=== PATIENT | female | born 1960 | race Caucasian/White ===

== ENCOUNTER 2020-10-23 17:13 | Emergency (ER) | payer BC, SELFPAY ==
--- NOTE | ~2020-10-23 | CT_ITS ---
EXAMINATION: CT ANGIOGRAM NECK WITH CONTRAST CT ANGIOGRAM BRAIN WITH CONTRAST CLINICAL INFORMATION: Rule out stroke. COMPARISON: None. TECHNIQUE: Test bolus sequences followed by intravenous administration 70 mL of Omnipaque 350. Helical imaging was performed in the axial plane from the thoracic inlet to the skull vertex. Delayed postcontrast imaging of the head was also performed. The data was processed at the medical laboratory technologist workstation for generation of MIP sequences. Angled MIPs and volume rendered reformatted images were also generated at an offline 3D workstation. Stenoses are assessed in accordance with NASCET criteria unless otherwise indicated. This CT examination was performed using dose optimization techniques as appropriate, variously including the following: *Automated exposure control *Adjustment of mA and/or kV according to patient size (this includes techniques or standardized protocols for targeted exams where dose is matched to indication/reason for exam; i.e. extremities or head) *Use of iterative reconstruction technique DLP: 2317 mGy-cm FINDINGS: Head CT: There is patchy hypoattenuation within the right inferior frontal lobe as seen on series 10 image 35/75. No well-defined cytotoxic edema is seen. There is no hemorrhage, mass effect, or extra-axial collection. The ventricles are normal in size and configuration without evidence of hydrocephalus. No enhancing lesion is seen. The dural venous sinuses are normally opacified. The extracranial structures are within normal limits. Neck CTA: The aortic arch and great vessels are patent. The bilateral common and internal carotid arteries are patent without significant stenosis of the carotid bifurcations. The bilateral vertebral arteries are patent. Head CTA: No intracranial aneurysm is seen. The intracranial internal carotid arteries appear normal. The anterior cerebral artery, anterior communicating artery, and middle cerebral arteries appear normal. The intradural vertebral arteries and basilar artery appear normal. The posterior cerebral arteries appear normal. There is a -type right [employer]CELL[employer]IST. A short segment basilar fenestration is noted. Non-vascular findings: No consolidation is seen within the upper lungs. Multilevel degenerative changes are seen within the spine predominantly from C4 to C7. CT/CT angio head neck IMPRESSION: CT head: Patchy area of hypoattenuation in the right frontal lobe could represent an area of evolving infarction or sequela of microangiopathy. No hemorrhage. CTA neck: No hemodynamically significant stenosis in the major arteries of the neck. CTA head: No large vessel occlusion or significant stenosis within the intracranial circulation.
[2020-10-23 17:20] VITALS: BP 152/79; PULSE 75; RESP 16; TEMP 36.7; O2SAT 98; BMI 38.0
--- NOTE | 2020-10-23 17:26 | ECG_ITS ---
Test Reason : WEAKNESS Blood Pressure : / mmHG Vent. Rate : 077 BPM Atrial Rate : 077 BPM P-R Int : 184 ms QRS Dur : 080 ms QT Int : 370 ms P-R-T Axes : 043 -03 030 degrees QTc Int : 418 ms Normal sinus rhythm Possible Inferior infarct , age undetermined - coulde be normal variant Cannot rule out Anterior infarct , age undetermined - could be normal variant or from lead placement Borderline ECG No previous ECGs available Referred By: Amador Sher Electronically Signed By:SHARMILA HAHN
--- NOTE | 2020-10-23 17:33 | ED.NEUROSD ---
HPI - Neuro Symptoms/Deficit General Chief Complaint: Weakness Stated Complaint: right sided tingling Time Seen by Provider: 10/23/20 17:26 Source: patient Mode of arrival: ambulatory Limitations: no limitations History of Present Illness HPI Narrative: Patient history of hypertension high cholesterol who usually healthy around 16:15 patient noticed all of a sudden right-sided tingling sensation which lasted for about 5 minutes , no dysarthria felt little weak on the right side when she tried to walk. Whole episode lasted only for 5 minutes no headaches no visual problem no speech problem patient never had similar episode in the past no history of migraine Time: 16:15 Related Data Previous Rx's Medication Instructions Recorded aspirin [Enteric Coated Aspirin] 81 mg PO DAILY #90 tab 10/23/20 Allergies Allergy/AdvReac Type Severity Reaction Status Date / Time No Known Allergies Allergy Verified 10/23/20 17:23 Review of Systems Review of Systems: Constitutional : No Weight loss, No Fever, No Chills ENT/Mouth : No sore throat, No Rhinorrhea Eyes: No Eye Pain, No Swelling Cardiovascular : No Chest Pain, no palpitations Respiratory : No Cough, No Sputum, no shortness of breath Gastrointestinal : no Nausea, No Vomiting, No Diarrhea, No abdominal Pain, no black stools Genitourinary : No Dysuria, No Urinary Frequency Musculoskeletal : No joint pain, No Myalgias, No Joint Swelling Skin : No Skin Lesions, No rash Neuro : +Weakness, + Numbness, No Dizziness, No Headache Psych : No Anxiety/Panic, No Depression Heme/Lymph: No Bruising, No Lymphadenopathy Endocrine : No Polyuria, No Polydipsia All other systems reviewed and are negative [facility] Past Medical History Medical History High cholesterol HTN (hypertension) Social History Social History Alcohol intake: never Smoking Status: Never smoker Use of substances other than those prescribed or required for medical reasons: No Advance Directives: No Advance Directives Information Provided: Yes Physical Exam Vital Signs: Vital Signs: Last Vital Signs Temp 98.4 F 10/23/20 20:00 Pulse 80 10/23/20 20:00 Resp 16 10/23/20 20:00 BP 136/66 10/23/20 20:00 Pulse Ox 99 10/23/20 20:00 Body Mass Index 38.0 Appearance: Alert. Oriented X3. No acute distress. Eyes: Pupils equal, round and reactive to light. ENT: Pharynx normal. Neck: Normal inspection. Neck supple. CVS: Normal heart rate and rhythm. Pulses normal. Respiratory: No respiratory distress. Breath sounds normal. Abdomen: Soft and nontender. Bowel sounds are present, no mass palpable, no CVA tenderness Skin: Skin warm and dry. Normal skin color. Normal skin turgor. Extremities: No lower extremity edema. Neuro: Oriented X 3. No motor deficit. No sensory deficit. Cranial nerves 2-12 intact tone normal no cerebellar signs, speech normal MDM - Neuro Symptoms/Deficit MDM Narrative Medical decision making narrative: Patient with right-sided paresthesia CT scan negative for any acute pathology etiology not very clear questionable TIA. Patient advised to follow-up with neurologist taking baby aspirin for now daily Differential Diagnosis Differential diagnosis: Likely peripheral neuropathy and transient cerebral ischemia Lab Data Attestation: I reviewed the patient's lab results. Result diagrams: 10/23/20 18:28 10/23/20 18:28 Labs: Lab Results 10/23/20 10/23/20 10/23/20 Range/Units 18:28 18:28 18:28 WBC 10.4 (4.8-10.8) X10*3/uL RBC 4.50 (4.20-5.50) X10*6/uL Hgb 13.4 (12.0-16.0) g/dl Hct 41.2 (37-47) % MCV 91.6 (80-98) fL MCH 29.8 (27.0-33.0) pg MCHC 32.5 (31.0-35.0) g/dl RDW 12.2 (11.0-16.0) % Plt Count 299 (160-400) X10*3/uL MPV 9.8 (9.4-12.3) fL Immature Gran % (Auto) 0.2 (0.0-0.4) % Neut % (Auto) 62.6 (45-73) % Lymph % (Auto) 26.0 (20-40) % Thurston % (Auto) 8.2 (2-11) % Eos % (Auto) 2.6 (0-4) % Baso % (Auto) 0.4 (0-2) % Lymph # (Auto) 2.7 (1.2-4.9) X10*3/uL Thurston # (Auto) 0.9 (0.1-1.2) X10*3/uL Eos # (Auto) 0.3 (0.0-0.4) X10*3/uL Baso # (Auto) 0.0 (0.0-0.2) X10*3/uL Abs Immat Gran (auto) 0.02 (0.00-0.03) X10*3/uL Absolute Neuts (auto) 6.5 (2.0-8.3) X10*3/uL Absolute Nucleated RBC 0.000 (0.0-0.012) X10*3/uL Nucleated RBC % (auto) 0.0 (0.0-0.2) /100WBC PT 11.3 (10.8-13.0) SEC INR 1.0 (0.9-1.1) APTT 32.3 (24.1-38.0) SEC Sodium 139 (135-145) mmol/L Potassium 3.8 (3.3-5.1) mmol/L Chloride 104 (96-108) mmol/L Carbon Dioxide 26 (22-29) mmol/L Anion Gap 13 (12-20) BUN 15 (9-16) mg/dL Creatinine 0.73 (0.5-1.4) mg/dL Estim Creat Clear Calc 95.7 Estimated GFR > 60 Random Glucose 84 (60-115) mg/dL Calcium 9.4 (8.4-10.2) mg/dL Total Bilirubin 0.3 (0.0-1.0) mg/dL Direct Bilirubin < 0.2 (0.0-0.5) mg/dL AST 25 (5-31) U/L ALT 37 H (0-31) U/L Alkaline Phosphatase 64 (39-117) U/L Total Protein 7.0 (6.5-8.0) g/dL Albumin 4.1 (3.5-5.0) g/dL ECG Data Attestation: I personally reviewed and interpreted this ECG as follows: Interpretation: Normal sinus rhythm heart rate 77 beats per minute normal intervals normal axis no acute ST T wave changes no acute ischemia NIH Stroke Scale Internal: Initial- Upon Arrival Level of Consciousness: Alert Level of Consciousness Questions: Answers both questions correctly Level of Consciousness Commands: Performs both tasks correctly Best Gaze: Normal Visual: No visual loss Facial Palsy: Normal Motor Arm (Right): No drift Motor Arm (Left): No drift Motor Leg (Right): No drift Motor Leg (Left): No drift Limb Ataxia: Absent Sensory: Normal Best Language: No aphasia Dysarthia: Normal Extinction and Inattention: No abnormality Score: 0 Discharge Plan Discharge Clinical Impression: TIA (transient ischemic attack) Patient Disposition: Home, Self-Care Instructions: Transient Ischemic Attack (ED) Additional Instructions: Take baby aspirin daily and follow with neurologist Report to the ER if recurrence of the attack or any focal deficits Prescriptions: New aspirin [Enteric Coated Aspirin] 81 mg tablet,delayed release (DR/EC) 81 mg PO DAILY Qty: 90 RF: 0 Referrals: Avtar Yoo MD [Physician] - 1 week Interventions: ED Discharge Assessment Last Done: 10/23/20 21:03 Discharge Date/Time: 10/23/20 21:04
[2020-10-23] MEDS: iohexoL 350 MG/ML 100 ML INFUS..BTL IV (18:11)
[2020-10-23 18:32] LABS: MANUAL DIFF FLAG NO
[2020-10-23 18:34] LABS: Basophils Percent Auto 0.4 % (0-2); Eosinophils Absolute Auto 0.3 X10*3/uL (0.0-0.4); Eosinophils Percent Auto 2.6 % (0-4); Hematocrit 41.2 % (37-47); Hemoglobin 13.4 g/dl (12.0-16.0); Imm Gran Abs Auto 0.02 X10*3/uL (0.00-0.03); Imm Gran Pct Auto 0.2 % (0.0-0.4); Lymphocytes Absolute Auto 2.7 X10*3/uL (1.2-4.9); Mean Corpuscular HGB Conc 32.5 g/dl (31.0-35.0); Mean Corpuscular Hemoglobin 29.8 pg (27.0-33.0); Mean Corpuscular Volume 91.6 fL (80-98); Mean Platelet Volume 9.8 fL (9.4-12.3); Monocytes Absolute Auto 0.9 X10*3/uL (0.1-1.2); Monocytes Percent Auto 8.2 % (2-11); Neutrophils Absolute Auto 6.5 X10*3/uL (2.0-8.3); Neutrophils Percent Auto 62.6 % (45-73); Platelet Count 299 X10*3/uL (160-400); Red Cell Distribution Width 12.2 % (11.0-16.0); White Blood Count 10.4 X10*3/uL (4.8-10.8)
[2020-10-23 18:40] LABS: Prothrombin Time 11.3 SEC (10.8-13.0)
[2020-10-23 18:43] LABS: Partial Thromboplastin Time 32.3 SEC (24.1-38.0)
[2020-10-23 18:58] LABS: Alanine Aminotransferase 37 U/L (0-31); Albumin Level 4.1 g/dL (3.5-5.0); Alkaline Phosphatase 64 U/L (39-117); Anion Gap 13 (12-20); Aspartate Amino Transferase 25 U/L (5-31); Bilirubin Direct < 0.2 mg/dL (0.0-0.5); Bilirubin Total 0.3 mg/dL (0.0-1.0); Blood Urea Nitrogen 15 mg/dL (9-16); Calcium 9.4 mg/dL (8.4-10.2); Carbon Dioxide 26 mmol/L (22-29); Chloride 104 mmol/L (96-108); Creatinine Clr Calc Pharmacy 95.7; Estimated Glomerular Filt Rate > 60; Glucose Random 84 mg/dL (60-115); Potassium 3.8 mmol/L (3.3-5.1); Sodium 139 mmol/L (135-145)
[2020-10-23 20:00] VITALS: BP 136/66; PULSE 80; RESP 16; TEMP 36.9; O2SAT 99
--- NOTE | 2020-10-23 21:04 | PC.NURSE ---
pt alert and oriented x3. eye contact and verbal response clear and appropriate for setting. pt speaks in full sentences and able to make needs known. PERRLA. pt able to squeeze this nurses fingers with both hands, able to flex and extend foot against nurses hands bilaterally. pt able to move all extremities voluntarily. pt ambulates independently and gait is steady. pt has no questions or concerns upon discharge.
== END 2020-10-23 21:04 | disposition home or self-care (01) ==
PROVIDERS: Emergency Provider Internal Medicine; PCP Internal Medicine
DX: G45.9 Transient cerebral ischemic attack, unspecified (principal); R20.2 Paresthesia of skin; I10 Essential (primary) hypertension; Z79.82 Long term (current) use of aspirin; Z79.899 Other long term (current) drug therapy
CPT/HCPCS: 36415; 70496; 70498; 80048; 80076; 85025; 85610; 85730; 93005; 96360; 99284; Q9967